=== PATIENT | male | born 1985 | race Caucasian/White ===

== ENCOUNTER 2017-06-01 17:40 | Emergency (ER) | payer OTHER ==
[~2017-06-01] VITALS: Ht 170.2 cm; Wt 77.1 kg
[~2017-06-01 17:40] MED LIST: HYDROCODON-ACE1 EAC7 PO; IBUPROFEN 800800 MG PO; LACTULOSE10 GM/152 PO; NOHOMEMEDICATIONS
[2017-06-01 18:32] LABS: ABSOLUTE LYMPHOCYTES 1.2 thou/uL (0.8-5.3); ABSOLUTE MONOCYTES 1.1 thou/uL (0.0-1.2); ABSOLUTE NEUTROPHILS 7.7 thou/uL (1.6-8.1); BASOPHILS 0.1 %; EOSINOPHILS 0.3 %; HEMOGLOBIN 14.7 gm/dL (14.0-18.0); MCH 31.7 pg (26.0-34.0); MCHC 34.9 g/dL (28.0-37.0); MCV 90.7 fL (80.0-100.0); MONOCYTES 10.8 %; MPV 8.9 fl. (7.2-11.1); NUCLEATED RBCS 0 /100WBC; PLATELET COUNT* 162 thou/uL (150-400); POLYS 76.8 %; RBC 4.62 mil/uL (4.50-6.00); RDW-CV 12.5 % (10.5-14.5); WBC 10.1 thou/uL (4.0-11.0)
[2017-06-01 18:35] LABS: URINE BILIRUBIN NEGATIVE (Negative); URINE BLOOD TRACE (Negative); URINE CLARITY CLEAR; URINE COLOR YELLOW; URINE GLUCOSE-RANDOM NEGATIVE (Negative); URINE KETONES NEGATIVE (Negative); URINE LEUKOCYTES-REFLEX NEGATIVE (Negative); URINE NITRITE-REFLEX NEGATIVE (Negative); URINE PROTEIN NEGATIVE (Negative); URINE SPECIFIC GRAVITY <= 1.005 (1.005-1.030); URINE UROBILINOGEN 0.2 E.U./dl (0.2-1.0)
[2017-06-01 18:41] LABS: CALCIUM 8.3 mg/dL (8.5-10.1); POTASSIUM 3.4 mmol/L (3.5-5.1)
[2017-06-01 18:45] LABS: ALBUMIN 3.7 g/dL (3.4-5.0); TOTAL BILIRUBIN 1.7 mg/dL (<0.1-1.0); TOTAL PROTEIN 6.4 g/dL (6.4-8.2)
[2017-06-01 21:40] VITALS: BP 124/65
[2017-06-02] MEDS ORDERED: TRAMADOL 50 MG50 MG PO (19:18)
== END 2017-06-01 21:40 | disposition home or self-care (01) ==
LOC: M.ERS 17:40
PROVIDERS: Physician Assistant
DX: R10.31 Right lower quadrant pain (principal)

== ENCOUNTER 2017-06-02 19:13 | Observation (INO) | payer OTHER ==
[~2017-06-02] VITALS: Ht 170.2 cm; Wt 77.6 kg
[2017-06-02 19:15] VITALS: BP 134/77
[2017-06-02] MEDS ORDERED: TRAMADOL 50 MG50 MG PO (19:18)
[2017-06-02 20:25] LABS: HEMATOCRIT 44.1 % (42.0-52.0); HEMOGLOBIN 15.1 gm/dL (14.0-18.0); MCH 31.2 pg (26.0-34.0); MCHC 34.2 g/dL (28.0-37.0); MCV 91.1 fL (80.0-100.0); MPV 8.5 fl. (7.2-11.1); NUCLEATED RBCS 0 /100WBC; PLATELET COUNT* 163 thou/uL (150-400); RBC 4.84 mil/uL (4.50-6.00); RDW-CV 12.4 % (10.5-14.5); WBC 14.1 thou/uL (4.0-11.0)
[2017-06-02 20:27] LABS: URINE BILIRUBIN NEGATIVE (Negative); URINE BLOOD TRACE (Negative); URINE CLARITY CLEAR; URINE COLOR YELLOW; URINE GLUCOSE-RANDOM NEGATIVE (Negative); URINE KETONES TRACE (Negative); URINE LEUKOCYTES-REFLEX NEGATIVE (Negative); URINE NITRITE-REFLEX NEGATIVE (Negative); URINE PROTEIN NEGATIVE (Negative); URINE UROBILINOGEN 0.2 E.U./dl (0.2-1.0)
[2017-06-02 20:41] LABS: CALCIUM 8.7 mg/dL (8.5-10.1); POTASSIUM 3.6 mmol/L (3.5-5.1)
[2017-06-02 20:47] LABS: ABSOLUTE LYMPHOCYTES 1.4 thou/uL (0.8-5.3); ABSOLUTE NEUTROPHILS 11.7 thou/uL (1.6-8.1)
[2017-06-02 20:48] LABS: PLATELET ESTIMATE ADEQUATE
[2017-06-02 20:50] LABS: ALBUMIN 3.9 g/dL (3.4-5.0); TOTAL BILIRUBIN 2.6 mg/dL (<0.1-1.0); TOTAL PROTEIN 7.2 g/dL (6.4-8.2)
[2017-06-02 22:48] VITALS: BP 121/57
[2017-06-03 01:30] VITALS: BP 121/74
[2017-06-03 09:00] VITALS: BP 114/64
--- NOTE | 2017-06-03 09:37 | NUR ---
ASSUMED RESPONSIBILITY OF PT THIS AM NO COMPLAINTS AT THIS TIME DENIES PAIN PLAN TO DISCHARGE AFTER REGULAR DIET WHICH PT TOLERATED WELL PT IS ALERT AND ORIENTED AT BEDSIDE GLUE INCISIONS INTACT TO ABD CLEAN AND DRY VOIDING APPROPRIATELY
[2017-06-03 09:43] VITALS: BP 114/64
[2017-06-03] MEDS ORDERED: HYDROCODONE-AP1 EAC6 PO (09:50)
--- NOTE | 2017-06-03 10:40 | NUR ---
PT LEFT WITH TO HOME C/O PAIN AND GAVE PAIN MEDS BEFORE LEAVING SCRIPT GIVEN AND INFORMATION ON THE MEDICATION GIVEN IV DISCONTINUED WITHOUT ISSUES
--- NOTE | 2017-06-04 14:04 | S ---
[place] [address] SURGICAL PATH RPT PROCEDURE Name: ROGER HANNA Room: [address] Tracie Stevens#: [id number] Admission: 06/02/17 Date of : 85 Discharge: 06/03/17 Report #: [id number] Path Case #: [id number] PATHOLOGY REPORT COLLECTION DATE: 06/02/2017 RECEIVED DATE: 06/03/2017 SUBMITTING PHYS: Dr. Antonella Hernandez OTHER PHYS: SPECIMEN(S) RECEIVED: A.Appendix * * * * * * * * * * * * FINAL DIAGNOSIS: Appendix: - Acute, gangrenous appendicitis, periappendicitis and serositis with small distal diverticulum. (LISA:mm; 06/04/2017) PATHOLOGIST: Joni Moura M.D. REPORT ELECTRONICALLY SIGNED BY: Joni Moura M.D. DATE/TIME: 06/04/2017 14:03 * * * * * * * * * * * * GROSS PATHOLOGY: Received in formalin labeled "Roger Hanna appendix," is an appendix measuring 7.5 cm in length and 1.2 cm in diameter with a moderate amount of attached mesoappendix. The serosal surface is graham-rosa, smooth near the proximal margin and encased with adhesions and is necrotic at the distal tip. Sectioning reveals a patent to dilated lumen containing brown-red fecal material. The lumen at the distal tip appears markedly thinned with a possible diverticulum measuring up to 0.4 cm. [employer] sections are submitted as follows: A1: Proximal margin and distal tip bisected A2: Possible diverticulum and wholesale representative cross-sections (SDY; 06/03/2017) CLINICAL HISTORY: Acute appendicitis INITIAL CPT CODE(S): A; 86563 [facility], [address] [place] [address], [place] [address]. Technical [facility] by [facility] at [address] [place] [address], [address], [place] [address] SURGICAL PATH RPT PROCEDURE Name: ROGER HANNA Room: [address] Tracie Stevens#: [id number] Admission: 06/02/17 Date of : 85 Discharge: 06/03/17 Report #: [id number] Path Case #: [id number] [place] [address]. [facility] [address] [place] [address] PHONE: [phone] DIRECTOR: Kwaku Walker M.D. * * * END OF REPORT * * *
--- NOTE | 2017-06-12 11:10 | OP ---
[facility] [address] [place] [address] OPERATIVE REPORT Name: ROGER RYAN Room: [address] Tracie Stevens#: [id number] Admission: 06/02/17 Attend Phys: Antonella Hernandez MD Discharge: 06/03/17 Date of : 85 Report #: [id number] THIS REPORT FOR: //name// CC: Antonella Hernandez [facility] physician/PCP Primary Care Provider DATE OF SERVICE: 06/02/2017 PREOPERATIVE DIAGNOSIS: Acute appendicitis. POSTOPERATIVE DIAGNOSIS: Acute appendicitis. PROCEDURE: Laparoscopic appendectomy. SURGEON: Antonella Hernandez MD [employer]CE[employer] LIEUTENANT: Lynette Woodruff DO. ESTIMATED BLOOD LOSS: 5 mL. COMPLICATIONS: None. FINDINGS: Necrotic tip of the appendix without curtis perforation. DESCRIPTION OF PROCEDURE: Fully informed consent obtained preoperatively. Full discussion of risks, benefits and alternatives and questions answered. The patient understood risk of bleeding, infection, reoperation, conversion to open, injury to surrounding structure including bowel or bladder, hernia, catastrophic complications up to including cardiopulmonary failure and . The patient understood and wished to proceed. He was taken to the operating room, prepped and draped in a standard sterile fashion, began with a timeout with all in agreement. A 12 mm incision was made above the umbilicus. I used open Krish technique to enter safely into the abdomen and surveyed the abdomen. Additional 5 mm trocars were placed in the left lower quadrant and suprapubic. I placed the patient's head down and tilted to the left. We looked in the right lower quadrant. There was some fibrinous exudate just behind the terminal ileum. This was pulled back gently with blunt graspers and the appendix was noted to be severely inflamed. It was pulled away from the lateral pelvic sidewall. The tip was necrotic, but not frankly perforated. Harmonic scalpel was used to take down mesoappendix up to the base. Next, the blue load Endo-SANDIP stapler was fired at the base with good transection. I watched the staple line for several minutes. It did not appear to be bleeding even after desufflating. I removed the ports while desufflating. Next, I closed the fascia with 0 Vicryl using a [id number] stitch. Finger sweep performed to make sure no entrapped contents; 4-0 Monocryl used to close the skin [place] [address] OPERATIVE REPORT Name: ROGER RYAN Room: [address]#: [id number] Admission: 06/02/17 Attend Phys: Antonella Hernandez MD Discharge: 06/03/17 Date of : 85 Report #: [id number] Sponge, needle and instrument counts were correct at the end of the case. The patient tolerated well. <ELECTRONICALLY SIGNED> By: Antonella Hernandez MD 06/12/17 [id number] Hernandez MD /florian
== END 2017-06-03 10:30 | disposition home or self-care (01) ==
LOC: M.SUR 19:13 → M.ERS 19:13 → M.ORTHSURG 23:49 → M.TBA 23:49 → M.ORTHSURG 06-03 00:36
PROVIDERS: Nurse Practitioner; ADMIT Surgery
DX: K35.80 Unspecified acute appendicitis (principal)